=== PATIENT | female | born 1955 | race Caucasian/White ===

== ENCOUNTER → 2022-08-29 08:58 | Outpatient (CLI) | payer OTHER, SELFPAY ==
[2022-08-29 11:31] LABS: COVID19 -Nasal RAPID Negative (Negative)
== END ==
PROVIDERS: Visit Provider Surgery
DX: Z20.822 Contact with and (suspected) exposure to COVID-19 (principal); Z01.812 Encounter for preprocedural laboratory examination
CPT/HCPCS: 87635; C9803

== ENCOUNTER 2022-08-30 09:18 | Day surgery (SDC) | payer OTHER, SELFPAY ==
[2022-08-30] MEDS: LACTATED RINGERS 1,000 ML 42 ML IV (09:55)
[2022-08-30 09:56] VITALS: BMI 22.6
[2022-08-30 10:05] VITALS: BP 156/90; PULSE 76; RESP 17; TEMP 36.6; O2SAT 98; BMI 22.6
--- NOTE | 2022-08-30 10:53 | PM.HP.1 ---
History of Present Illness History of Present Illness Date Patient Seen: 08/30/22 Time Patient Seen: 10:54 Chief complaint: SDC Narrative: Kelsie is a 67-year-old woman who is here for colonoscopy. She had 1 about 5 years ago with a small polyp removed. No known family history of colon cancer. Patient History Family & Social History Social History: household members spouse Tobacco & Substance use: Smoking Status Never smoker alcohol intake current alcohol intake frequency 0-2 drinks per day Substance Use Type does not use Meds Home Medications and Allergies Allergies Allergy/AdvReac Type Severity Reaction Status Date / Time Penicillins Allergy Verified 08/30/22 10:01 Exam Vital Signs (past 8 hours): - 08/30/22 10:05 Temperature 97.9 F Pulse Rate 76 Respiratory Rate 17 Blood Pressure 156/90 H Pulse Oximetry 98 Oxygen Delivery Method Room Air Oxygen Delivery Method Room Air Const General: healthy appearing Assessment & Plan Assessment and plan (1) History of colon polyps: Status: Acute Plan We reviewed the risks and benefits of colonoscopy and she would like to proceed. Time Spent With Patient Critical Care time: I spent a total of [] minutes of critical care time on this patient's care today; this time is exclusive of procedural time.
--- NOTE | 2022-08-30 11:18 | PM.OP.COLON ---
Operative Date/Time/Diagnoses Date of procedure: 08/30/22 Time of procedure: 11:18 Pre-op diagnosis: History of colon polyps Post-op diagnosis: same Procedure & Clinicians Study performed: Colonoscopy Same procedure as scheduled: Yes Surgeon: Arcenio Truong Procedure Notes Procedure in detail: Surgeon: Arcenio Truong MD Anesthesia: Dr. Smith Procedure: The patient was brought to the endoscopy suite, placed in left lateral decubitus position. The patient was connected to monitoring devices. A time-out was performed. Sedation was administered. Once the patient was adequately sedated, a digital rectal exam was performed and was normal. The scope was then inserted and advanced to the cecum where the appendiceal orifice was identified and photographed. The scope was then slowly withdrawn over greater than 6 minutes. The mucosa was thoroughly inspected. No polyps were noted. The scope was retroflexed in the rectum. There were some mild internal hemorrhoids but no other abnormalities noted. The scope was straightened and removed. The patient was awakened and brought to recovery. Scope withdrawal time: 6 minutes and 20 seconds Sedation time: 11 minutes EBL: 0 Findings: Normal colon Post-procedure Recommendations: Colonoscopy in 10 years Disposition: PACU
[2022-08-30 11:21] VITALS: BP 110/76; PULSE 87; RESP 15; TEMP 35.8; O2SAT 96
[2022-08-30 11:26] VITALS: BP 130/81; PULSE 84; RESP 13; O2SAT 96
[2022-08-30 11:30] VITALS: BP 114/72; PULSE 75; RESP 15; TEMP 35.8; O2SAT 99
[2022-08-30 11:37] VITALS: BP 147/82; PULSE 65; RESP 18; TEMP 36.6; O2SAT 99
== END 2022-08-30 11:48 | disposition home or self-care (01) ==
PROVIDERS: Referring Provider Surgery; Visit Provider Surgery
PROC: 0DJD8ZZ Inspection of Lower Intestinal Tract, Via Natural or Artificial Opening Endoscopic (ICD-10-PCS; CPT 45378; principal; 2022-08-30 10:45)
DX: Z12.11 Encounter for screening for malignant neoplasm of colon (principal); Z86.010 Personal history of colon polyps; K64.8 Other hemorrhoids
CPT/HCPCS: 45378; J2250; J3010